=== PATIENT | female | born 1975 | race Caucasian/White ===

== ENCOUNTER → 2016-08-13 | Outpatient (CLI) | payer OTHER ==
[2016-04-18 03:09] VITALS: BP 130/77
[2016-08-13 08:41] LABS: BASO % 1 % (0-3); EOS # 0.3 x10^3/uL (0.0-0.7); EOS % 4 % (0-3); HEMATOCRIT 40.3 % (36.0-47.0); HEMOGLOBIN 13.5 g/dL (12.0-15.5); LYMPH # 3.5 x10^3/uL (1.0-4.8); LYMPH % 47 % (24-48); MEAN CORPUSCULAR HEMOGLOBIN 31 pg (25-35); MEAN CORPUSCULAR HGB CONC 34 g/dL (31-37); MEAN CORPUSCULAR VOLUME 93 fL (79-100); MONO # 0.5 x10^3/uL (0.0-1.1); MONO % 6 % (0-9); NEUT # 3.1 x10^3uL (1.8-7.7); NEUT % 42 % (31-73); PLATELET COUNT 259 x10^3/uL (140-400); RED BLOOD COUNT 4.32 x10^6/uL (3.50-5.40); RED CELL DISTRIBUTION WIDTH 12.1 % (11.5-14.5); WHITE BLOOD COUNT 7.4 x10^3/uL (4.0-11.0)
[2016-08-13 09:12] LABS: ALBUMIN 3.8 g/dL (3.4-5.0); CALCIUM 8.9 mg/dL (8.5-10.1); CREATININE 0.9 mg/dL (0.6-1.0); GFR 68.7; POTASSIUM 3.8 mmol/L (3.5-5.1); TOTAL BILIRUBIN 0.3 mg/dL (0.2-1.0); TOTAL PROTEIN 7.7 g/dL (6.4-8.2)
[2016-08-14 16:14] LABS: CALCIUM PTH 9.2 mg/dL (8.7-10.2); CREATININE PTH 0.76 mg/dL (0.57-1.00); PHOSPHORUS PTH 3.9 mg/dL (2.5-4.5); PTH INTACT 90 pg/mL (15-65); eGFR IF AFRICAN AMERICAN 112 (>59); eGFR IF NONAFRICAN AMERICAN 97 (>59)
== END | disposition home or self-care (01) ==
LOC: LAB 07:28
PROVIDERS: ATTEND Family Medicine
DX: G93.2 Benign intracranial hypertension (principal)
CPT/HCPCS: 36415; 80053; 83970; 84443; 85027; 85610

== ENCOUNTER → 2017-01-27 | Outpatient (CLI) | payer OTHER ==
[2016-04-18 03:09] VITALS: BP 130/77
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
== END | disposition home or self-care (01) ==
LOC: DXRADRC 08:14
PROVIDERS: ATTEND Physician Assistant Medical
DX: R09.89 Other specified symptoms and signs involving the circulatory and respiratory systems (principal); R06.02 Shortness of breath; R05 Cough; J45.909 Unspecified asthma, uncomplicated
CPT/HCPCS: 71020

== ENCOUNTER → 2017-06-17 | Outpatient (CLI) | payer OTHER ==
[2016-04-18 03:09] VITALS: BP 130/77
--- NOTE | 2017-06-17 10:14 | RAD ---
Thoracic spine, 06/17/2017: History: Back pain There is a mild right convexity midthoracic scoliosis. The thoracic vertebral heights are well-maintained. There are mild scattered marginal spurs. No fracture or dislocation is identified. The apparent superior mediastinal widening is probably due to the AP technique and prominent mediastinal fat. IMPRESSION: 1. Mild thoracic scoliosis. 2. Moderate multilevel degenerative change. 3. No acute bony abnormality is detected. Lumbar spine, 5 views, 06/17/2017: The lumbar vertebral heights are well-maintained. There are mild scattered marginal spurs. There are mild degenerative changes involving the facet joints in the lower lumbar spine. There is no evidence of spondylolysis. The paraspinous soft tissues are unremarkable. IMPRESSION: 1. Mild scattered degenerative changes. 2. No acute bony abnormality is detected.
== END | disposition home or self-care (01) ==
LOC: PMG 08:49
PROVIDERS: ATTEND Physician Assistant Medical
DX: M47.896 Other spondylosis, lumbar region (principal); M41.84 Other forms of scoliosis, thoracic region
CPT/HCPCS: 72072; 72110

== ENCOUNTER 2017-09-18 04:44 | Emergency (ER) | payer OTHER ==
[~2017-09-18] VITALS: Ht 167.6 cm; Wt 106.6 kg
[2017-09-18 04:47] VITALS: BP 134/51
[2017-09-18] MEDS ORDERED: ACET-704 PO (05:29)
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
== END 2017-09-18 05:33 | disposition home or self-care (01) ==
LOC: ER 04:44
DX: M79.641 Pain in right hand (principal); R20.2 Paresthesia of skin; F41.9 Anxiety disorder, unspecified; J45.909 Unspecified asthma, uncomplicated; G43.909 Migraine, unspecified, not intractable, without status migrainosus; Z87.442 Personal history of urinary calculi; Z88.2 Allergy status to sulfonamides; Z88.1 Allergy status to other antibiotic agents
CPT/HCPCS: 73130; 99284

== ENCOUNTER → 2018-02-20 | Outpatient (CLI) | payer OTHER ==
[~2018-02-20] MED LIST: ACET-704 PO
[2018-02-20 07:45] LABS: BASO # 0.1 x10^3/uL (0.0-0.2); BASO % 1 % (0-3); EOS # 0.5 x10^3/uL (0.0-0.7); EOS % 7 % (0-3); HEMATOCRIT 37.7 % (36.0-47.0); HEMOGLOBIN 12.6 g/dL (12.0-15.5); LYMPH # 3.1 x10^3/uL (1.0-4.8); LYMPH % 44 % (24-48); MEAN CORPUSCULAR HEMOGLOBIN 30 pg (25-35); MEAN CORPUSCULAR HGB CONC 34 g/dL (31-37); MEAN CORPUSCULAR VOLUME 90 fL (79-100); MONO # 0.4 x10^3/uL (0.0-1.1); MONO % 6 % (0-9); NEUT % 43 % (31-73); PLATELET COUNT 285 x10^3/uL (140-400); RED BLOOD COUNT 4.17 x10^6/uL (3.50-5.40); RED CELL DISTRIBUTION WIDTH 13.9 % (11.5-14.5)
[2018-02-20 07:59] LABS: ALBUMIN 3.6 g/dL (3.4-5.0); ALBUMIN/GLOBULIN RATIO 0.9 (1.0-1.7); CALCIUM 8.3 mg/dL (8.5-10.1); CREATININE 0.9 mg/dL (0.6-1.0); PHOSPHORUS 3.6 mg/dL (2.6-4.7); POTASSIUM 4.2 mmol/L (3.5-5.1); TOTAL BILIRUBIN 0.3 mg/dL (0.2-1.0); TOTAL PROTEIN 7.5 g/dL (6.4-8.2)
[2018-02-20 13:49] LABS: THYROID STIM HORMONE (TSH) 1.207 uIU/mL (0.358-3.740)
[2018-02-20 22:07] LABS: CALCIUM PTH 9.4 mg/dL (8.7-10.2); CREATININE PTH 0.72 mg/dL (0.57-1.00); PTH INTACT 96 pg/mL (15-65)
== END | disposition home or self-care (01) ==
LOC: LAB 07:07
PROVIDERS: ATTEND Physician Assistant
DX: E21.3 Hyperparathyroidism, unspecified (principal); E55.9 Vitamin D deficiency, unspecified; G93.2 Benign intracranial hypertension; M89.8X9 Other specified disorders of bone, unspecified site; Z98.84 Bariatric surgery status
CPT/HCPCS: 36415; 80053; 80061; 82306; 82607; 82728; 82746; 83540; 83550; 83970; 84100; 84425; 84439; 84443; 85025

== ENCOUNTER 2018-05-20 06:59 | Emergency (ER) | payer OTHER ==
[~2018-05-20] VITALS: Ht 167.6 cm; Wt 108.9 kg
[2018-05-20 07:05] VITALS: BP 133/90
[2018-05-20] MEDS ORDERED: ORPH-16 PO (07:27)
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
== END 2018-05-20 07:36 | disposition home or self-care (01) ==
LOC: ER 06:59
DX: S29.012A Strain of muscle and tendon of back wall of thorax, initial encounter (principal); M25.511 Pain in right shoulder; J45.909 Unspecified asthma, uncomplicated; G43.909 Migraine, unspecified, not intractable, without status migrainosus; Z98.84 Bariatric surgery status; Z88.2 Allergy status to sulfonamides; Z88.1 Allergy status to other antibiotic agents; Z88.8 Allergy status to other drugs, medicaments and biological substances; X50.9XXA Other and unspecified overexertion or strenuous movements or postures, initial encounter; Y93.89 Activity, other specified; Y92.238 Other place in hospital as the place of occurrence of the external cause; Y99.0 Civilian activity done for income or pay
CPT/HCPCS: 99283

== ENCOUNTER → 2018-05-27 | Outpatient (CLI) | payer OTHER ==
[2018-05-20 07:05] VITALS: BP 133/90
[~2018-05-27] MED LIST changes: +ORPH-16 PO
[2018-05-27 10:59] LABS: ALBUMIN 3.7 g/dL (3.4-5.0); ALBUMIN/GLOBULIN RATIO 0.9 (1.0-1.7); CALCIUM 8.9 mg/dL (8.5-10.1); CREATININE 0.8 mg/dL (0.6-1.0); GFR 77.9; MAGNESIUM 1.8 mg/dL (1.8-2.4); PHOSPHORUS 3.7 mg/dL (2.6-4.7); POTASSIUM 4.1 mmol/L (3.5-5.1); TOTAL BILIRUBIN 0.3 mg/dL (0.2-1.0)
[2018-05-27 16:08] LABS: CALCIUM PTH 9.4 mg/dL (8.7-10.2); CREATININE PTH 0.72 mg/dL (0.57-1.00); PTH INTACT 56 pg/mL (15-65)
== END | disposition home or self-care (01) ==
LOC: LAB 09:47
PROVIDERS: ATTEND Internal Medicine Endocrinology, Diabetes & Metabolism
DX: E83.51 Hypocalcemia (principal)
CPT/HCPCS: 36415; 80053; 82306; 82330; 83735; 83970; 84100

== ENCOUNTER → 2018-06-05 | Outpatient (CLI) | payer OTHER ==
[2018-05-20 07:05] VITALS: BP 133/90
--- NOTE | 2018-06-05 11:00 | RAD ---
Limited ultrasound evaluation of the posterior right thorax 06/05/2018 INDICATION: Pain. Focal swelling. Recent injury. COMPARISON STUDY: None. Discussion: Focused sonographic evaluation of the subcutaneous tissues of the posterior right thorax was performed. Static images are submitted to PACS. No mass or focal fluid collection is identified. A focal sonographic abnormalities are seen. IMPRESSION: No focal sonographic abnormalities are identified Electronically signed by: Karsten Barber MD (06/05/2018 10:57 AM) [id number]
== END | disposition home or self-care (01) ==
LOC: US 09:01
PROVIDERS: ATTEND Registered Nurse
DX: M62.838 Other muscle spasm (principal)
CPT/HCPCS: 76604

== ENCOUNTER → 2018-06-12 | Outpatient (CLI) | payer OTHER ==
[2018-05-20 07:05] VITALS: BP 133/90
--- NOTE | 2018-06-12 17:08 | RAD ---
Right shoulder, 3 views, 06/12/2018: HISTORY: Right shoulder pain, remote injury No fracture or dislocation is identified. The periarticular soft tissues are unremarkable. IMPRESSION: No acute right shoulder abnormality is detected. Electronically signed by: Augie Hugo MD (06/12/2018 5:05 PM) [facility]
== END | disposition home or self-care (01) ==
LOC: PMG 16:11
PROVIDERS: ATTEND Registered Nurse
DX: M25.511 Pain in right shoulder (principal)
CPT/HCPCS: 73030

== ENCOUNTER → 2019-03-01 | Outpatient (CLI) | payer OTHER ==
[2019-03-01 13:40] LABS: ALBUMIN 3.7 g/dL (3.4-5.0); ALBUMIN/GLOBULIN RATIO 0.9 (1.0-1.7); BASO # 0.1 x10^3/uL (0.0-0.2); BASO % 1 % (0-3); CALCIUM 8.3 mg/dL (8.5-10.1); CREATININE 0.9 mg/dL (0.6-1.0); EOS # 0.5 x10^3/uL (0.0-0.7); EOS % 7 % (0-3); GFR 67.7; HEMATOCRIT 39.1 % (36.0-47.0); HEMOGLOBIN 12.8 g/dL (12.0-15.5); LYMPH # 2.3 x10^3/uL (1.0-4.8); LYMPH % 34 % (24-48); MEAN CORPUSCULAR HEMOGLOBIN 31 pg (25-35); MEAN CORPUSCULAR HGB CONC 33 g/dL (31-37); MEAN CORPUSCULAR VOLUME 93 fL (79-100); MONO # 0.4 x10^3/uL (0.0-1.1); MONO % 6 % (0-9); NEUT # 3.6 x10^3uL (1.8-7.7); NEUT % 53 % (31-73); PLATELET COUNT 259 x10^3/uL (140-400); POTASSIUM 4.2 mmol/L (3.5-5.1); RED BLOOD COUNT 4.19 x10^6/uL (3.50-5.40); RED CELL DISTRIBUTION WIDTH 13.5 % (11.5-14.5); TOTAL BILIRUBIN 0.3 mg/dL (0.2-1.0); TOTAL PROTEIN 7.7 g/dL (6.4-8.2); WHITE BLOOD COUNT 6.8 x10^3/uL (4.0-11.0)
--- NOTE | 2019-03-01 17:14 | RAD ---
Examination: HIP RIGHT 2V WITH PELVIS History: Palpable abnormality at the lateral aspect of the posterior right hip Comparison/Correlation: None Findings: Frontal view of the pelvis, frontal view right hip, and frog-leg lateral view right hip are provided. Surgical clips are present overlying the pelvis, right groin region and about the hips. No fracture or bone destruction. Hip joints and sacroiliac joints are symmetric and unremarkable. Impression: No suspicious process. Consider further evaluation with MRI if able to evaluate for mass lesion if clinically warranted. Electronically signed by: Himanshu Mejia MD (03/01/2019 5:11 PM) [facility]
--- NOTE | 2019-03-01 17:15 | RAD ---
Examination: RIGHT FEMUR XRAY History: Hard lump at the lateral posterior aspect of the hip. Comparison/Correlation: None Findings: Frontal and lateral views of the right femur were obtained. Surgical clips are present about the right lateral pelvic region and hip. Bony structures are unremarkable. No acute fracture. Soft tissues are unremarkable. No significant degenerative change. Impression: No suspicious process. Consider further imaging if occult process is a consideration. Electronically signed by: Himanshu Mejia MD (03/01/2019 5:12 PM) [facility]
[2019-03-02 02:07] LABS: CALCIUM PTH 9.1 mg/dL (8.7-10.2); CREATININE PTH 0.88 mg/dL (0.57-1.00); PTH INTACT 137 pg/mL (15-65)
[2019-03-02 13:51] LABS: THYROID STIM HORMONE (TSH) 2.396 uIU/mL (0.358-3.740)
== END | disposition home or self-care (01) ==
LOC: PMG 12:24
PROVIDERS: ATTEND Registered Nurse
DX: R22.41 Localized swelling, mass and lump, right lower limb (principal); E21.3 Hyperparathyroidism, unspecified
CPT/HCPCS: 36415; 73502; 73552; 80053; 82306; 83970; 84439; 84443; 84481; 85025

== ENCOUNTER → 2019-05-26 | Outpatient (CLI) | payer OTHER ==
--- NOTE | 2019-05-26 12:37 | RAD ---
Chest radiograph 05/26/2019 12:00 AM INDICATION: Dyspnea COMPARISON: None available TECHNIQUE: Frontal and lateral views of the chest are provided. FINDINGS: The cardiomediastinal silhouette is borderline enlarged, stable. There are no pleural effusions. There is no pulmonary vascular congestion. There is no pneumothorax. The lungs are clear. Mild kyphosis centered at the thoracolumbar junction. IMPRESSION: No acute cardiopulmonary process. Electronically signed by: Mariella Fleming MD (05/26/2019 12:34 PM) [id number]
== END | disposition home or self-care (01) ==
LOC: PMG 11:56
PROVIDERS: ATTEND Registered Nurse
DX: R06.00 Dyspnea, unspecified (principal)
CPT/HCPCS: 71046

== ENCOUNTER → 2019-07-23 | Outpatient (CLI) | payer OTHER ==
[~2019-07-23] MED LIST changes: +CONTRAST GIVEN MC PRN; +IOHEXOL 300 MG/ML 75 ML VIAL. IV ONE
--- NOTE | 2019-07-23 10:07 | RAD ---
Bone Densitometry History: Post gastric bypass, low calcium, vitamin D. Hyperparathyroidism. Findings: Bone Densitometry was performed with dual photon absorption of the lumbar spine and right proximal femur. Lumbar Spine: Bone density is 1.302 g/cm2 for L1-L4. T-score is 1.0. Z-score is -0.1. Right total femur: Bone density is 1.130 g/cm2. T-score is 1.4. Z-score is 0.9. IMPRESSION: Bone mineral densities of the lumbar spine and right femur are normal. World Health Organization definition of osteoporosis and osteopenia for women: normal equals T score at or above -1.0 standard deviations; osteopenia equals T score between -1.0 and -2.5 standard deviations; osteoporosis equals T score at or below -2.5 standard deviations. Electronically signed by: Babar Ag MD (07/23/2019 10:04 AM) [id number]
--- NOTE | 2019-07-23 11:06 | RAD ---
Examination: CT right hip with IV contrast HISTORY: History of right hip getting larger COMPARISON: None available TECHNIQUE: Axial CT images of the right hip were performed without contrast. Coronal and sagittal reformats are performed Exposure: One or more of the following individualized dose reduction techniques were utilized for this examination: 1. Automated exposure control 2. Adjustment of the mA and/or kV according to patient size 3. Use of iterative reconstruction technique FINDINGS: The right femoral head is within the acetabula. There is no acute fracture or dislocation identified. No evidence of mass identified. Partially visualized mild hepatic steatosis. IMPRESSION: No obvious mass evident. If clinical suspicion for soft tissue mass persists, recommend MRI for better evaluation. Electronically signed by: Blair Crockett MD (07/23/2019 11:03 AM) [id number]
== END ==
LOC: CT 08:40
PROVIDERS: ATTEND Registered Nurse
DX: R22.42 Localized swelling, mass and lump, left lower limb (principal); E21.3 Hyperparathyroidism, unspecified; K76.0 Fatty (change of) liver, not elsewhere classified
CPT/HCPCS: 73701; 77080; Q9967

== ENCOUNTER → 2019-07-28 | Outpatient (CLI) | payer OTHER ==
[~2019-07-28] MED LIST changes: -CONTRAST GIVEN MC PRN; -IOHEXOL 300 MG/ML 75 ML VIAL. IV ONE
== END | disposition home or self-care (01) ==
LOC: LAB 14:10
PROVIDERS: ATTEND Internal Medicine Cardiovascular Disease
DX: Z20.828 Contact with and (suspected) exposure to other viral communicable diseases (principal)
CPT/HCPCS: 87635

== ENCOUNTER 2019-08-24 20:32 | Emergency (ER) | payer OTHER ==
[~2019-08-24] VITALS: Ht 167.6 cm; Wt 118.8 kg
--- NOTE | 2019-08-24 20:39 | PHYS DOC ---
Past History Past Medical History: Asthma, Migraines Additional Past Medical Histor: gastric ulcers Past Surgical History: Hysterectomy Additional Past Surgical Histo: gastric bypass Smoking: Non-smoker Alcohol Use: None Drug Use: None General Adult HPI: HPI: ".. I was washing the dishes.. and my left index finger caught the edge of sharp knife.. an I sliced it.... My daughter tavia made me come in... 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 who presents with above hx and complaints of Laceration to centimeter diagonal laceration to the dorsal side of right index or second finger. The laceration does have some avulses flap. Does not appear to enter joint surface. Distal sensation and movement intact. Patient is up-to-date with tetanus. The patient has not had recent travel to the [place] area. Is in contact with multiple patients when working at [facility] [employer]. Discussed options with patient elected the tempt Dermabond in the laceration. Patient is right-hand dominant. Review of Systems: Review of Systems: Constitutional: Denies fever or chills Eyes: Denies change in visual acuity HENT: Denies nasal congestion or sore throat Respiratory: Denies cough or shortness of breath Cardiovascular: Denies chest pain or edema GI: Denies abdominal pain, nausea, vomiting, bloody stools or diarrhea : Denies dysuria Musculoskeletal: Denies back pain or joint pain . Reports improvement of Lt Hip bursitis after Steroid injection by orthro. Integument: Denies rash Complaints of Rt. finger laceration. Neurologic: Denies headache, focal weakness or sensory changes Endocrine: Denies polyuria or polydipsia Lymphatic: Denies swollen glands Psychiatric: Denies depression or anxiety Heart Score: Risk Factors: Risk Factors: DM, Current or recent (<one month) smoker, HTN, HLP, family history of CAD, obesity. Risk Scores: Score 0 - 3: 2.5% MACE over next 6 weeks - Discharge Home Score 4 - 6: 20.3% MACE over next 6 weeks - Admit for Clinical Observation Score 7 - 10: 72.7% MACE over next 6 weeks - Early Invasive Strategies Family History: Family History: Noncontributory to presentation Current Medications: Current Meds: See nursing for home meds Allergies: Allergies: Allergies Coded Allergies Type Severity Reaction Last Updated Verified Sulfa (Sulfonamide Antibiotics) Allergy Unknown 04/18/16 Yes desloratadine Allergy Unknown 04/18/16 Yes gemifloxacin Allergy Unknown 04/18/16 Yes green pepper Allergy Unknown 04/18/16 Yes moxifloxacin Allergy Unknown 04/18/16 Yes Physical Exam: PE: Constitutional: Mild distress, Extremities: No tenderness, no cyanosis, no clubbing, ROM intact, no edema. [] Surgical scars. Rt index finger laceration as per HPI. Neurologic: Alert and oriented X 3, normal motor function, normal sensory function, no gross focal deficits noted. [] Psychologic: Affect normal, judgement normal, mood normal. [] EKG: EKG: [] Radiology/Procedures: Radiology/Procedures: [] Course & Med Decision Making: Course & Med Decision Making Pertinent Labs and Imaging studies reviewed. (See chart for details) Laceration repair-finger had been previously washed by patient. Re-cleaned laceration wound outside edges with alcohol and then Betadine. Pt. opted for Dermabond, advised of sometime poor closure on flexor surface. Applied Dermabond and then bulk tape splint to limit movement of the distal joint of right index finger. Patient to keep finger clean and dry. Follow-up primary care. Patient follow-up primary care her elevated blood pressure. Impression: 1. Right index finger laceration 2 cm 2. Hypertension-patient not currently on blood pressure meds but has history of needing BP meds on occasion- Must be followed up. [] Ren Disclaimer: Ren Disclaimer: This electronic medical record was generated, in whole or in part, using a voice recognition dictation system. Departure Departure: Disposition: 01 HOME/RESIDENCE PRIOR TO ADM Condition: STABLE Referrals: [facility] [employer] (PCP) Ren Disclaimer This chart was dictated in whole or in part using Voice Recognition software in a busy, high-work load, and often noisy Emergency Department environment. It may contain unintended and wholly unrecognized errors or omissions. MARK XAVIER MD August 24, 2019 20:39
[2019-08-24 21:00] VITALS: BP 138/95
== END 2019-08-24 21:05 | disposition home or self-care (01) ==
LOC: ER 20:32
DX: S61.210A Laceration without foreign body of right index finger without damage to nail, initial encounter (principal); J45.909 Unspecified asthma, uncomplicated; G43.909 Migraine, unspecified, not intractable, without status migrainosus; Z90.710 Acquired absence of both cervix and uterus; Z98.890 Other specified postprocedural states; Z88.2 Allergy status to sulfonamides; Z88.1 Allergy status to other antibiotic agents; Z88.8 Allergy status to other drugs, medicaments and biological substances; W26.0XXA Contact with knife, initial encounter; Y93.89 Activity, other specified; Y92.89 Other specified places as the place of occurrence of the external cause; Y99.8 Other external cause status
CPT/HCPCS: 12001; 99282

== ENCOUNTER → 2019-09-25 | Outpatient (CLI) | payer OTHER ==
[2019-09-25 16:04] LABS: BASO # 0.1 x10^3/uL (0.0-0.2); BASO % 1 % (0-3); EOS # 0.6 x10^3/uL (0.0-0.7); EOS % 7 % (0-3); HEMOGLOBIN 12.3 g/dL (12.0-15.5); LYMPH # 2.9 x10^3/uL (1.0-4.8); LYMPH % 35 % (24-48); MEAN CORPUSCULAR HEMOGLOBIN 31 pg (25-35); MEAN CORPUSCULAR HGB CONC 33 g/dL (31-37); MEAN CORPUSCULAR VOLUME 92 fL (79-100); MONO # 0.5 x10^3/uL (0.0-1.1); MONO % 6 % (0-9); NEUT # 4.2 x10^3uL (1.8-7.7); NEUT % 51 % (31-73); PLATELET COUNT 302 x10^3/uL (140-400); RED BLOOD COUNT 4.03 x10^6/uL (3.50-5.40); RED CELL DISTRIBUTION WIDTH 14.7 % (11.5-14.5); WHITE BLOOD COUNT 8.3 x10^3/uL (4.0-11.0)
== END | disposition home or self-care (01) ==
LOC: LAB 14:49
PROVIDERS: ATTEND Internal Medicine Pulmonary Disease
DX: R06.02 Shortness of breath (principal); K76.0 Fatty (change of) liver, not elsewhere classified
CPT/HCPCS: 36415; 82785; 85025

== ENCOUNTER → 2019-11-04 | Outpatient (CLI) | payer OTHER | END | disposition home or self-care (01) | LOC: LAB 15:01 | PROVIDERS: ATTEND Internal Medicine Cardiovascular Disease | DX: J45.909 Unspecified asthma, uncomplicated (principal); Z20.828 Contact with and (suspected) exposure to other viral communicable diseases | CPT/HCPCS: 36415; U0003 ==

== ENCOUNTER → 2019-12-09 | Outpatient (CLI) | payer OTHER ==
[2019-12-09 16:52] LABS: BASO # 0.1 x10^3/uL (0.0-0.2); BASO % 1 % (0-3); EOS # 0.4 x10^3/uL (0.0-0.7); EOS % 5 % (0-3); HEMATOCRIT 35.6 % (36.0-47.0); HEMOGLOBIN 11.6 g/dL (12.0-15.5); LYMPH # 2.7 x10^3/uL (1.0-4.8); LYMPH % 38 % (24-48); MEAN CORPUSCULAR HEMOGLOBIN 29 pg (25-35); MEAN CORPUSCULAR HGB CONC 33 g/dL (31-37); MEAN CORPUSCULAR VOLUME 89 fL (79-100); MONO # 0.4 x10^3/uL (0.0-1.1); MONO % 6 % (0-9); NEUT # 3.6 x10^3uL (1.8-7.7); NEUT % 50 % (31-73); PLATELET COUNT 302 x10^3/uL (140-400); RED BLOOD COUNT 4.01 x10^6/uL (3.50-5.40); RED CELL DISTRIBUTION WIDTH 14.9 % (11.5-14.5); WHITE BLOOD COUNT 7.2 x10^3/uL (4.0-11.0)
[2019-12-09 17:00] LABS: ALBUMIN 3.5 g/dL (3.4-5.0); ALBUMIN/GLOBULIN RATIO 0.8 (1.0-1.7); CALCIUM 8.6 mg/dL (8.5-10.1); GFR 59.7; POTASSIUM 3.6 mmol/L (3.5-5.1); TOTAL BILIRUBIN 0.2 mg/dL (0.2-1.0); TOTAL PROTEIN 7.7 g/dL (6.4-8.2)
[2019-12-10 03:07] LABS: CALCIUM PTH 9.2 mg/dL (8.7-10.2); CREATININE PTH 0.72 mg/dL (0.57-1.00); PTH INTACT 86 pg/mL (15-65)
[2019-12-10 14:19] LABS: FREE T4 1.01 ng/dL (0.76-1.46); THYROID STIM HORMONE (TSH) 2.065 uIU/mL (0.358-3.740)
== END | disposition home or self-care (01) ==
LOC: PMG 15:39
PROVIDERS: ATTEND Physician Assistant
DX: E21.3 Hyperparathyroidism, unspecified (principal); G93.2 Benign intracranial hypertension; R25.2 Cramp and spasm; M79.10 Myalgia, unspecified site; J82 Pulmonary eosinophilia, not elsewhere classified
CPT/HCPCS: 80053; 83970; 84439; 84443; 85025

== ENCOUNTER → 2019-12-23 | Outpatient (CLI) | payer OTHER | END | disposition home or self-care (01) | LOC: LAB 17:18 | PROVIDERS: ATTEND Internal Medicine Cardiovascular Disease | DX: Z20.828 Contact with and (suspected) exposure to other viral communicable diseases (principal) | CPT/HCPCS: U0003-CS ==

== ENCOUNTER → 2020-03-11 | Outpatient (CLI) | payer OTHER ==
[2020-03-11 13:12] LABS: BASO % 0 % (0-3); EOS % 0 % (0-3); HEMATOCRIT 33.8 % (36.0-47.0); HEMOGLOBIN 10.6 g/dL (12.0-15.5); LYMPH # 1.6 x10^3/uL (1.0-4.8); LYMPH % 24 % (24-48); MEAN CORPUSCULAR HEMOGLOBIN 27 pg (25-35); MEAN CORPUSCULAR HGB CONC 31 g/dL (31-37); MEAN CORPUSCULAR VOLUME 86 fL (79-100); MONO # 0.2 x10^3/uL (0.0-1.1); MONO % 3 % (0-9); NEUT # 4.7 x10^3uL (1.8-7.7); NEUT % 72 % (31-73); PLATELET COUNT 323 x10^3/uL (140-400); RED BLOOD COUNT 3.93 x10^6/uL (3.50-5.40); RED CELL DISTRIBUTION WIDTH 15.9 % (11.5-14.5); WHITE BLOOD COUNT 6.6 x10^3/uL (4.0-11.0)
[2020-03-11 13:16] LABS: ALBUMIN 3.3 g/dL (3.4-5.0); ALBUMIN/GLOBULIN RATIO 0.9 (1.0-1.7); C REACTIVE PROTEIN 4.9 mg/L (0-3.3); CALCIUM 8.5 mg/dL (8.5-10.1); CREATININE 1.1 mg/dL (0.6-1.0); GFR 53.5; POTASSIUM 3.5 mmol/L (3.5-5.1); TOTAL BILIRUBIN 0.1 mg/dL (0.2-1.0)
== END ==
LOC: LAB 09:29
PROVIDERS: ATTEND Internal Medicine
DX: E55.9 Vitamin D deficiency, unspecified (principal); N25.1 Nephrogenic diabetes insipidus; E78.5 Hyperlipidemia, unspecified; I67.7 Cerebral arteritis, not elsewhere classified; M25.459 Effusion, unspecified hip; K91.1 Postgastric surgery syndromes
CPT/HCPCS: 36415; 80053; 80061; 82652; 85025; 86140

== ENCOUNTER → 2020-08-12 | Outpatient (CLI) | payer OTHER ==
[2020-08-12 20:41] LABS: BASO # 0.1 x10^3/uL (0.0-0.2); BASO % 1 % (0-3); EOS # 0.1 x10^3/uL (0.0-0.7); EOS % 1 % (0-3); HEMATOCRIT 37.2 % (36.0-47.0); LYMPH # 3.5 x10^3/uL (1.0-4.8); LYMPH % 38 % (24-48); MEAN CORPUSCULAR HEMOGLOBIN 29 pg (25-35); MEAN CORPUSCULAR HGB CONC 32 g/dL (31-37); MEAN CORPUSCULAR VOLUME 89 fL (79-100); MONO # 0.6 x10^3/uL (0.0-1.1); MONO % 7 % (0-9); NEUT # 4.9 x10^3uL (1.8-7.7); NEUT % 54 % (31-73); PLATELET COUNT 340 x10^3/uL (140-400); RED BLOOD COUNT 4.21 x10^6/uL (3.50-5.40); RED CELL DISTRIBUTION WIDTH 16.3 % (11.5-14.5); WHITE BLOOD COUNT 9.1 x10^3/uL (4.0-11.0)
[2020-08-14 05:36] LABS: IMMUNOGLOBULIN A 372 mg/dL (87-352); IMMUNOGLOBULIN G 1169 mg/dL (586-1602); IMMUNOGLOBULIN M 125 mg/dL (26-217)
== END ==
LOC: LAB 18:36
PROVIDERS: ATTEND Allergy & Immunology Clinical & Laboratory Immunology
DX: B99.9 Unspecified infectious disease (principal)
CPT/HCPCS: 82784; 85025; 85651; 86140; 86162; 86317; 87449

== ENCOUNTER → 2020-09-17 | Outpatient (CLI) | payer OTHER ==
[2020-09-17 15:02] LABS: BASO % 0 % (0-3); EOS % 0 % (0-3); HEMATOCRIT 35.6 % (36.0-47.0); HEMOGLOBIN 11.7 g/dL (12.0-15.5); LYMPH # 1.2 x10^3/uL (1.0-4.8); LYMPH % 15 % (24-48); MEAN CORPUSCULAR HEMOGLOBIN 30 pg (25-35); MEAN CORPUSCULAR HGB CONC 33 g/dL (31-37); MEAN CORPUSCULAR VOLUME 90 fL (79-100); MONO # 0.3 x10^3/uL (0.0-1.1); MONO % 4 % (0-9); NEUT # 6.5 x10^3uL (1.8-7.7); NEUT % 80 % (31-73); PLATELET COUNT 270 x10^3/uL (140-400); RED BLOOD COUNT 3.94 x10^6/uL (3.50-5.40); RED CELL DISTRIBUTION WIDTH 16.4 % (11.5-14.5); WHITE BLOOD COUNT 8.1 x10^3/uL (4.0-11.0)
[2020-09-17 15:05] LABS: CALCIUM 8.9 mg/dL (8.5-10.1); CREATININE 1.2 mg/dL (0.6-1.0); GFR 48.4; MAGNESIUM 1.8 mg/dL (1.8-2.4); POTASSIUM 4.1 mmol/L (3.5-5.1)
== END ==
LOC: LAB 09:04
PROVIDERS: ATTEND Nurse Practitioner
DX: R00.2 Palpitations (principal)
CPT/HCPCS: 36415; 80048; 83735; 84443; 85025

== ENCOUNTER → 2020-10-02 | Outpatient (CLI) | payer OTHER ==
[2020-10-02 14:32] LABS: CLARITY,URINE CLEAR; COLOR,URINE YELLOW
[2020-10-02 14:33] LABS: BILIRUBIN,URINE NEG (NEG); GLUCOSE,URINE NEG (NEG); NITRITE,URINE NEG (NEG); UROBILINOGEN,URINE 0.2 mg/dL (0.2 mg/dL)
[2020-10-02 14:42] LABS: BASO % 1 % (0-3); EOS # 0.1 x10^3/uL (0.0-0.7); EOS % 1 % (0-3); HEMATOCRIT 35.4 % (36.0-47.0); HEMOGLOBIN 11.7 g/dL (12.0-15.5); LYMPH # 2.9 x10^3/uL (1.0-4.8); LYMPH % 33 % (24-48); MEAN CORPUSCULAR HEMOGLOBIN 30 pg (25-35); MEAN CORPUSCULAR HGB CONC 33 g/dL (31-37); MEAN CORPUSCULAR VOLUME 91 fL (79-100); MONO # 0.5 x10^3/uL (0.0-1.1); MONO % 6 % (0-9); NEUT # 5.4 x10^3uL (1.8-7.7); NEUT % 60 % (31-73); PLATELET COUNT 297 x10^3/uL (140-400); RED BLOOD COUNT 3.91 x10^6/uL (3.50-5.40); RED CELL DISTRIBUTION WIDTH 16.2 % (11.5-14.5)
[2020-10-02 14:58] LABS: BACTERIA,URINE 0 /HPF (0-FEW); RBC,URINE 0 /HPF (0-2); SQUAMOUS EPITHELIAL CELL,UR OCC /LPF; WBC,URINE 0 /HPF (0-4)
[2020-10-02 15:07] LABS: ALBUMIN 3.3 g/dL (3.4-5.0); ALBUMIN/GLOBULIN RATIO 0.8 (1.0-1.7); C REACTIVE PROTEIN 6.5 mg/L (0-3.3); CALCIUM 8.4 mg/dL (8.5-10.1); CREATININE 0.9 mg/dL (0.6-1.0); GFR 67.4; POTASSIUM 3.5 mmol/L (3.5-5.1); TOTAL BILIRUBIN 0.2 mg/dL (0.2-1.0); TOTAL PROTEIN 7.5 g/dL (6.4-8.2)
--- NOTE | 2020-10-02 17:14 | RAD ---
XR HIP (WITH OR WITHOUT PELVIS) 1 VIEW History: Reason: BILATERAL HIP PAIN / Spl. Instructions: / History: Technique: 2 views bilateral hips. Comparison: None. Findings: Normal alignment. No fracture. Mild pubic symphysis DJD. Impression: 1. No acute osseous abnormality. Electronically signed by: Javier Avila DO (10/02/2020 5:11 PM) [id number]
--- NOTE | 2020-10-02 17:15 | RAD ---
XR KNEE 1-2 VIEWS History: Reason: BILATERAL KNEE PAIN / Spl. Instructions: / History: Technique: 2 views bilateral knees. Comparison: None. Findings: Normal alignment. No fracture. No significant knee joint effusion. Bilateral varicose veins, right gr eater than left. Impression: 1. No acute osseous abnormality. Electronically signed by: Javier Avila DO (10/02/2020 5:13 PM) [id number]
--- NOTE | 2020-10-02 17:17 | RAD ---
XR LUMBAR SPINE 2-3V History: Reason: LOW BACK PAIN. / Spl. Instructions: / History: Technique: 3 views lumbar spine. Comparison: None. Findings: Normal vertebral body height and alignment. No fracture. Mild multilevel thoracolumbar degenerative d isc changes. Surgical clips right upper quadrant. Impression: 1. Mild multilevel thoracolumbar spondylosis. Electronically signed by: Javier Avila DO (10/02/2020 5:14 PM) [id number]
[2020-10-02 22:07] LABS: TRANSFERRIN 379 mg/dL (192-364)
[2020-10-02 23:07] LABS: RHEUMATOID FACTOR <10.0 IU/mL (0.0-13.9)
[2020-10-03 00:08] LABS: ESTRADIOL LEVEL 80.9 pg/mL (.); FSH 32.2 mIU/mL (.); HEMOGLOBIN A1C 5.8 % (4.8-5.6); LUTEINIZING HORMONE 18.6 mIU/mL (.); PROGESTERONE <0.1 ng/mL (.)
[2020-10-03 15:11] LABS: CALCIUM PTH 8.9 mg/dL (8.7-10.2); CREATININE PTH 0.76 mg/dL (0.57-1.00); PTH INTACT 45 pg/mL (15-65); SSA ANTIBODY <0.2 AI (0.0-0.9); SSB ANTIBODY <0.2 AI (0.0-0.9)
[2020-10-03 18:07] LABS: ANA INTERP Negative (.)
[2020-10-03 20:40] LABS: FREE T4 0.97 ng/dL (0.76-1.46); THYROID STIM HORMONE (TSH) 1.933 uIU/mL (0.358-3.740)
[2020-10-04 23:07] LABS: CYCLIC CITRULLIN PEP AB 9 units (0-19)
== END ==
LOC: LAB 12:48
PROVIDERS: ATTEND Family Medicine
DX: D68.311 Acquired hemophilia (principal); D51.9 Vitamin B12 deficiency anemia, unspecified; M13.0 Polyarthritis, unspecified
CPT/HCPCS: 36415; 72100; 73521; 73560; 80053; 80061; 81001; 82306; 82330; 82607; 82652; 82670; 83001; 83002; 83036; 83540; 83970; 84144; 84439; 84443; 84466; 85025; 85045; 85610; 85730; 86038; 86140; 86200; 86235; 86431

== ENCOUNTER → 2021-04-28 | Outpatient (CLI) | payer OTHER | LOC: LAB 13:28 | PROVIDERS: ATTEND Internal Medicine Cardiovascular Disease | DX: U07.1 COVID-19 (principal) | CPT/HCPCS: U0003 ==

== ENCOUNTER → 2021-06-06 | Outpatient (CLI) | payer OTHER ==
[2021-06-06 14:52] LABS: CALCIUM 8.7 mg/dL (8.5-10.1); CREATININE 0.9 mg/dL (0.6-1.0); GFR 67.1; POTASSIUM 3.9 mmol/L (3.5-5.1)
== END ==
LOC: LAB 13:41
PROVIDERS: ATTEND Internal Medicine Cardiovascular Disease
DX: R06.00 Dyspnea, unspecified (principal)
CPT/HCPCS: 36415; 80048

== ENCOUNTER → 2021-06-19 | Outpatient (CLI) | payer OTHER ==
--- NOTE | 2021-06-20 12:51 | CARD ---
MR#: [id number] Date of Study: 06/19/2021 Ordering Physician: FELIZ RAZO, Referring Physician: FELIZ RAZO, Tech: Jerry Belcher [facility] APPROVED REPORT EXAM: Two-dimensional and M-mode echocardiogram with Doppler and color Doppler. Other Information Quality : AverageHR: 72bpm Rhythm : NSR INDICATION Dyspnea RISK FACTORS Hypertension Obesity Post Covid Pneumonia, ESA, Asthma 2D DIMENSIONS Left Atrium(2D)4.5 (1.6-4.0cm)IVSd1.1 (0.7-1.1cm) Aortic Root(2D)3.2 (2.0-3.7cm)LVDd5.4 (3.9-5.9cm) LVOT Diameter2.0 (1.8-2.4cm)PWd1.1 (0.7-1.1cm) LA Dgjxwa53 (18-58mL)LVDs3.3 (2.5-4.0cm) FS (%) 38.8 %SV95.5 ml Aortic Valve AoV Peak Mio.184.6cm/sAoV VTI39.3cm AO Peak GR.13.6mmHgLVOT Peak Mio.106.0cm/s LVOT VTI 25.08cmAO Mean GR.8mmHg PILO (VMAX)1.51sy6GIT (VTI)2.06cm2 Mitral Valve MV E Goszocyd130.6cm/sMV E Peak Gr.8mmHg MV DECEL [id number] A Nlzrssta020.1cm/s MV E Mean Gr.4mmHgE/A Ratio1.1 Pulmonary Valve PV Peak Yqcbcevx213.7cm/sPV Peak Grad.6mmHg Tricuspid Valve TR P. Ibshoaij175ve/sTR Peak Gr.27mmHg Pulmonary Vein S1 Yyzypvha03.0cm/sD2 Arbtwhww80.7cm/s LEFT VENTRICLE The left ventricle is normal size. There is normal left ventricular wall thickness. The left ventricu lar systolic function is normal and the ejection fraction is within normal range. Left ventricular ej ection fraction of 50 to 55%. There is normal LV segmental wall motion. Transmitral Doppler flow nazia bonifacio is Grade II-pseudonormal filling dynamics. No left ventricle thrombus noted on this study. There is no ventricular septal defect visualized. There is no left ventricular aneurysm. There is no mass n oted in the left ventricle. RIGHT VENTRICLE The right ventricle is normal size. There is normal right ventricular wall thickness. The right ventr icular systolic function is normal. ATRIA The left atrium is borderline dilated. The right atrium size is normal. The interatrial septum is int act with no evidence for an atrial septal defect or patent foramen ovale as noted on 2-D or Doppler i maging. AORTIC VALVE The aortic valve is normal in structure and function. Doppler and Color Flow revealed no significant aortic regurgitation. There is no significant aortic valvular stenosis. There is no aortic valvular v egetation. MITRAL VALVE The mitral valve is normal in structure and function. There is no evidence of mitral valve prolapse. There is no mitral valve stenosis. Doppler and Color-flow revealed trace mitral regurgitation. TRICUSPID VALVE The tricuspid valve is normal in structure and function. Doppler and Color Flow revealed trace tricus pid regurgitation. The PA pressure was estimated at 30 mmHg. There is no tricuspid valve prolapse or vegetation. There is no tricuspid valve stenosis. PULMONIC VALVE The pulmonary valve is normal in structure and function. Doppler and Color Flow revealed no pulmonic valvular regurgitation. There is no pulmonic valvular stenosis. GREAT VESSELS The aortic root is normal in size. The ascending aorta is normal in size. The pulmonary artery is nor mal. The IVC is normal in size and collapses >50% with inspiration. PERICARDIAL EFFUSION There is no pleural effusion. There is no evidence of significant pericardial effusion. Critical Notification Critical Value: No <Conclusion> The left ventricle is normal size. The left ventricular systolic function is normal and the ejection fraction is within normal range. Left ventricular ejection fraction of 50 to 55%. Doppler and Color Flow revealed no significant aortic regurgitation. There is no significant aortic valvular stenosis. Doppler and Color-flow revealed trace mitral regurgitation. Doppler and Color Flow revealed trace tricuspid regurgitation. The PA pressure was estimated at 30 mmHg. Signed by : Chad Monsivais MD Electronically Approved : 06/20/2021 12:50:49
== END ==
LOC: ECHO 11:04
PROVIDERS: ATTEND Internal Medicine Cardiovascular Disease
DX: R06.00 Dyspnea, unspecified (principal)
CPT/HCPCS: 93306

== ENCOUNTER → 2021-07-09 | Outpatient (CLI) | payer OTHER ==
[2021-07-09 11:04] LABS: BASO # 0.1 x10^3/uL (0.0-0.2); BASO % 1 % (0-3); EOS # 0.3 x10^3/uL (0.0-0.7); EOS % 4 % (0-3); HEMATOCRIT 33.6 % (36.0-47.0); HEMOGLOBIN 10.5 g/dL (12.0-15.5); LYMPH # 2.7 x10^3/uL (1.0-4.8); LYMPH % 38 % (24-48); MEAN CORPUSCULAR HEMOGLOBIN 28 pg (25-35); MEAN CORPUSCULAR HGB CONC 31 g/dL (31-37); MEAN CORPUSCULAR VOLUME 88 fL (79-100); MONO # 0.5 x10^3/uL (0.0-1.1); MONO % 7 % (0-9); NEUT # 3.5 x10^3uL (1.8-7.7); NEUT % 50 % (31-73); PLATELET COUNT 322 x10^3/uL (140-400); RED CELL DISTRIBUTION WIDTH 16.1 % (11.5-14.5)
[2021-07-09 11:11] LABS: CALCIUM 9.1 mg/dL (8.5-10.1); CREATININE 0.9 mg/dL (0.6-1.0); GFR 67.1; POTASSIUM 4.5 mmol/L (3.5-5.1)
== END ==
LOC: LAB 10:25
PROVIDERS: ATTEND Psychiatry & Neurology Neurology
DX: M62.81 Muscle weakness (generalized) (principal)
CPT/HCPCS: 80048; 83519; 85025; 84238